=== PATIENT | male | born 1975 | race Caucasian/White ===

== ENCOUNTER 2016-11-08 21:39 | Emergency (ER) | payer OTHER ==
[2016-11-08] MEDS ORDERED: TORAdol 30 mg Injection IV ONE (22:09)
[2016-11-08] MEDS ORDERED: Sodium Chloride 0.9% 1000 ML 1,000 ML IV SCH (22:15)
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
[2016-11-08] MEDS ORDERED: TORAdol 30 mg Injection ONE (22:18)
[2016-11-08] MEDS ORDERED: Sodium Chloride 0.9% 1000 ML 1,000 ML ONE (22:18)
[2016-11-08 22:29] LABS: Mean Corpuscular Hemoglobin 30.5 pg (26-32); Platelet Count 393 K/mm3 (150-450); Red Blood Count 5.47 M/mm3 (4.1-5.6); Red Cell Distribution Width 13.3 % (11.5-14.0); White Blood Count 15.4 K/mm3 (4.0-10.5)
[2016-11-08 22:45] LABS: ALBUMIN 3.9 g/dL (3.4-5.0); ALKALINE PHOSPHATASE 84 U/L (46-116); ANION GAP 17.8 MEQ/L (5-15); BILIRUBIN,TOTAL 0.7 mg/dL (0.2-1.0); BLOOD UREA NITROGEN 8 mg/dL (9-20); CHLORIDE 105 mEq/L (98-107); Carbon Dioxide 22.5 mEq/L (21-32); Glucose 123 MG/DL (70-110); Potassium 3.8 mEq/L (3.5-5.1); SGOT/AST 28 U/L (15-37); SGPT/ALT 35 U/L (12-78); SODIUM 142 mEq/L (136-145); Total Protein 7.2 gm/dL (6.4-8.2)
[2016-11-08 22:51] LABS: Barbiturate,Urine NEG. (NEGATIVE); Methadone,Urine NEG. (NEGATIVE)
[2016-11-08 22:53] LABS: BAND 1 % (0.0-2.0); Platelet Estimate NORMAL (NORMAL); Total Cells Counted 100
[2016-11-08 22:56] LABS: COMPLETE URINE MICROSCOPIC? YES; Collection Type VOID
[2016-11-08 22:57] LABS: Bacteria FEW /HPF (NEGATIVE); Epithelial Cells RARE /HPF (FEW); Hyaline Casts 0-2 /LPF (0-2); WBC 0-2 /HPF (0-5)
[2016-11-09 00:49] VITALS: O2SAT 98
[2016-11-09] MEDS ORDERED: NORCO 5/325 MG PO ONE ×2 (01:40→01:49)
[2016-11-09] MEDS ORDERED: BACIGUENT PACKET TP ONE (01:42)
[2016-11-09] MEDS ORDERED: NORCO 5/325 MG ONE (01:52)
[2016-11-09] MEDS ORDERED: BACIGUENT PACKET ONE (01:52)
[2016-11-09 02:29] VITALS: BP 130/72; PULSE 68
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
== END 2016-11-09 02:15 | disposition home or self-care (01) ==
LOC: ED 21:39
DX: S00.93XA Contusion of unspecified part of head, initial encounter (principal); S20.221A Contusion of right back wall of thorax, initial encounter; M54.9 Dorsalgia, unspecified; R07.81 Pleurodynia; F10.129 Alcohol abuse with intoxication, unspecified; Y08.02XA Assault by strike by baseball bat, initial encounter
CPT/HCPCS: 36000; 36415; 70450; 71260; 72125; 74177; 80053; 81000; 85025; 96360; 96374; 99283; G0479; G0480; G0481; J1885